=== PATIENT | female | born 1970 | race Caucasian/White ===

== ENCOUNTER 2016-06-14 16:44 | Emergency (ER) | payer OTHER ==
[~2016-06-14] VITALS: Ht 175.3 cm; Wt 106.6 kg
[2016-06-15] MEDS ORDERED: NEURONTIN100 MG PO (02:02)
[2016-06-15] MEDS ORDERED: MOBIC15 MG PO (02:02)
[2016-06-15] MEDS ORDERED: CITALOPRAM HBR20 MG PO (02:03)
[2016-06-15] MEDS ORDERED: KLONOPIN0.5 MG PO (02:03)
== END 2016-06-14 20:00 | disposition short-term general hospital (02) ==
LOC: ER 16:44
DX: N13.2 Hydronephrosis with renal and ureteral calculous obstruction (principal); F32.9 Major depressive disorder, single episode, unspecified; Z79.899 Other long term (current) drug therapy; Z98.890 Other specified postprocedural states
CPT/HCPCS: J1885